=== PATIENT | male | born 1980 | race Caucasian/White ===

== ENCOUNTER 2022-02-15 10:10 | Observation (INO) ==
[2022-02-15] MEDS ORDERED: KETOROLAC 30 MG/ML VIAL IV ONE ×2 (11:17→14:49)
--- NOTE | 2022-02-15 11:25 | Emergency Department Note ---
Impression & Plan Cellulitis of left lower extremity, Pain and swelling of left knee ED Provider Note CHIEF COMPLAINT: Left lower extremity redness and swelling HISTORY OF PRESENT ILLNESS: Izaiah Barger is a 41 year old male with no significant past medical history who presents to the Emergency Department for evaluation of increased pain, redness and swelling to his left knee radiating down his anterior cardozo which has been progressing over the past 5 days. Initially, the patient noticed a small bump on his anterior distal knee which was mildly painful. He had been attempting to ice the area and took ibuprofen without improvement of his symptoms. Since then, the redness and swelling had continued to expand, but today it "blew up" and has since extended down his anterior cardozo. This has also become much more painful which worsens with attempts of weight bearing activity and flexion/extension of his knee. Additionally, upon waking up this morning the patient states that he felt generally unwell and had perceived fevers/chills. He also felt nauseous but denies specific abdominal pain or vomiting. Currently, he rates his discomfort as a 4/10. He has not attempted to take any medications for his symptoms today. 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 No known history of Lyme disease. No history of gout. He denies other joint pains or rashes. REVIEW OF SYSTEMS: 10 systems were reviewed and were negative unless otherwise stated in HPI as above PHYSICAL EXAM: VITALS: Vitals are noted on the nurse's note and reviewed by myself. Vital signs stable. General: Resting in bed, no acute distress HEENT: Normocephalic, PERRL, EOMI, mucous membranes moist, oropharynx clear Resp: Good inspiratory effort on room air, lung sounds clear bilaterally CV: Regular rate and rhythm, normal S1-S2, peripheral pulses palpated Abd: Soft, non-tender MSK/Integumentary: With attention to the LLE, there is a very small, punctate abrasion on the distal anterior knee but no other open wounds. Erythema and edema over the left anterior knee extending down over the majority of the anterior cardozo, warm and tender to palpation. No fluctuance to palpation of the knee. ROM of the left knee very limited secondary to pain. No tenderness to palpation of the left hip, thigh, ankle or foot. Sensation and d/p pulse intact. No other appreciable wounds or skin changes, moving all other extremities without apparent pain or difficulty Neuro: Awake, alert and oriented x 3, interacting and answering questions shani ropriately Differential diagnosis includes cellulitis, septic joint, tick borne illness, Lyme disease, gout, DVT, among others were considered. EMERGENCY DEPARTMENT COURSE: Physical exam and history were performed. Nursing triage notes, EMR, and medication list were personally reviewed. Patient appears to have increased pain, redness and swelling to his left knee radiating down his anterior cardozo which is been progressing over the past 5 days. Additional history as described above. See physical exam as noted above. The patient was offered medication. IV access was established and he was given Toradol 30 mg x 2 throughout his emergency department course. Labs were obtained and reviewed by myself as below. Of note, he was noted to have leukocytosis with a WBC of 14.79. No concern for anemia with hemoglobin 14.1. Electrolytes WNL. Renal indices stable. LFTs WNL. ESR was elevated at 46 and CRP elevated at 13.11. Procalcitonin not elevated at 0.16. Lyme IgG/IgM negative. Blood cultures were obtained and are pending. On initial evaluation, there were concerns for cellulitic infection. After blood cultures were obtained, he was given Ancef 2 g. Although there was no fluctuance on examination, x-ray of the left knee was obtained and reviewed by radiologist myself as below. There was moderate soft tissue swelling with a small joint effusion seen. Given the above findings and the patient's significant pain with range of motion of the left knee, there were concerns for possible septic joint. He did agree for arthrocentesis at bedside as follows: Left knee arthrocentesis: A towel was placed under the left knee to achieve ~15 degrees of flexion. The area was cleansed with betadine. A wheal of 1% buffered lidocaine was injected into the skin to achieve local anesthesia. An 18 g needle was injected into the lateral aspect of the knee under the patella into the joint space with aspiration of 1 mL of yellow/straw colored translucent synovial fluid with a small amount of blood. Unfortunately, this was only enough fluid for a culture, which was sent, however not enough for a cell count. A second attempt was performed (in the same fashion as previously noted) without additional aspiration of fluid. A bandage was placed over the injection sites. Following the initial arthrocentesis attempt, the patient had gotten up to use the bathroom and suffered a vaso vagal event. He passed out very briefly but immediately came to. He did not injure himself during the episode and was helped back into bed. Initially, he was noted to be hypotensive and bradycardic, but this quickly improved after he laid in bed to rest and was given NSS 1 L. No additional events noted on the ingot stripper. Upon reevaluation, the patient was doing well. I discussed the results of the above findings with him and his at bedside. Given the workup as above, I am concerned for cellulitic infection vs. septic joint. I do feel that he will benefit from continued treatment in the hospital for IV antibiotics. Ancef and Vancomycin ordered, however he did vomit immediately after starting the Ancef so this was stopped. Vancomycin continued. I did contact Dr. Argueta of [facility], they are aware of the patient's case. I also contacted Dr. Liriano of the [facility]. He agreed to evaluate the patient. Please see his documentation for additional plan and disposition thereafter. The patient and his agreed with the treatment plan as above. The chart was completed utilizing [email or web address] Speech Voice Recognition Software. Grammatical errors, random word insertions, pronoun errors, and incomplete sentences are an occasional consequence of this system due to software limitations, ambient noise, and hardware issues. Any formal questions or concerns about the content, text, or information contained within the body of this dictation should be directly addressed to the provider for clarification. Past Med/Surg History Medical History No pertinent past medical history Surgical History No pertinent past surgical history Family History Father Endocarditis Social History Smoking Status: Never smoker Feels Safe at Home: Yes Allergies Allergies Allergy/AdvReac Type Severity Reaction Status Date / Time No Known Allergies Allergy Verified 02/15/22 15:03 Home Meds Home Medications Medication Instructions Recorded Confirmed acetaminophen 500 mg tablet 1,000 mg PO DIRECTED PRN Pain 02/15/22 02/15/22 (Tylenol Extra Strength) ibuprofen 200 mg tablet 800 mg PO DIRECTED PRN Pain 02/15/22 02/15/22 Results & Data (ED) Vital Signs Vital Signs - 24 hr 02/15/22 11:00 02/15/22 13:33 02/15/22 14:45 Temperature 37.1 C Temperature Source Temporal Artery Scan Pulse Rate 91 H Pulse Rate [Right Radial] 50 L 78 Pulse Rate from SpO2 Sensor Pulse Rhythm [Right Radial] Regular Regular Pulse Strength [Right Radial] Normal Respiratory Rate 18 16 20 Respiratory Effort / Characteristics Non-Labored Non-Labored Respiratory Depth Normal Normal Blood Pressure 130/78 Blood Pressure [Right Arm] 88/37 L 126/70 Blood Pressure Mean 95 Blood Pressure Mean [Right Arm] 54 88 Blood Pressure Position [Right Arm] Right Lateral Lying Pulse Oximetry 97 98 100 Oxygen Delivery Method Room Air Room Air Room Air Sepsis Recent Fever Within 48 Hours No Sepsis New/Unexplained Change in Mental Status N/A Sepsis Action Taken by Nursing No Action Required 02/15/22 15:00 02/15/22 15:00 Temperature Temperature Source Pulse Rate 82 Pulse Rate [Right Radial] Pulse Rate from SpO2 Sensor 82 Pulse Rhythm [Right Radial] Pulse Strength [Right Radial] Respiratory Rate 27 H Respiratory Effort / Characteristics Respiratory Depth Blood Pressure 135/84 Blood Pressure [Right Arm] Blood Pressure Mean 101 Blood Pressure Mean [Right Arm] Blood Pressure Position [Right Arm] Pulse Oximetry 99 Oxygen Delivery Method Sepsis Recent Fever Within 48 Hours Sepsis New/Unexplained Change in Mental Status Sepsis Action Taken by Nursing Laboratory Data Result diagrams: 02/15/22 11:27 02/15/22 11:27 Lab Results 02/15/22 02/15/22 02/15/22 Range/Units 11:27 11:27 11:27 WBC 14.79 H (4.8-10.8) K/ul RBC 4.69 (4.63-6.08) M/uL Hgb 14.1 (14.0-18.0) g/dl Hct 40.8 (40.1-51.0) % MCV 87.0 (80.0-100.0) fL MCH 30.1 (25.0-34.0) pg MCHC 34.6 (32.0-36.0) g/dL RDW Std Deviation 39.2 (36.4-46.3) fL RDW Coeff of Ailyn 12.4 (11.5-14.5) % Plt Count 239 (130-400) K/uL MPV 9.1 L (9.4-12.4) fL Immature Gran % (Auto) 0.3 % Neut % (Auto) 82.3 % Lymph % (Auto) 8.7 % [place] % (Auto) 8.1 % Eos % (Auto) 0.1 % Baso % (Auto) 0.5 % Neut # (Auto) 12.16 H (1.4-6.5) K/uL Lymph # (Auto) 1.29 (1.2-3.4) K/uL [place] # (Auto) 1.20 H (0.24-0.82) K/uL Eos # (Auto) 0.02 (0-0.50) K/uL Baso # (Auto) 0.07 (0-0.2) K/uL Immature Gran # (Auto) 0.05 H (0.00-0.02) K/uL ESR 46 H (0-15) mm/hr Sodium (136-145) mmol/L Potassium (3.5-5.1) mmol/L Chloride (98-107) mmol/L Carbon Dioxide (21-32) mmol/L Anion Gap (3-11) BUN (6-23) mg/dl Creatinine (0.6-1.4) mg/dl Est Cr Clr Drug Dosing ml/min Est GFR ( Amer) ml/min Est GFR (Non-Af Amer) ml/min BUN/Creatinine Ratio (10-20) Glucose (70-99(Fasting)) mg/dl Uric Acid (2.6-7.2) mg/dl Calcium (8.5-10.1) mg/dl Total Bilirubin (0.2-1.0) mg/dl AST (13-39) U/L ALT (7-52) U/L Alkaline Phosphatase (34-104) U/L C-Reactive Protein (0-0.5) mg/dl Total Protein (6.0-8.3) gm/dl Albumin (3.4-5.0) gm/dl Globulin (2.5-4.0) gm/dl Albumin/Globulin Ratio (0.9-2) Procalcitonin 0.16 (0-0.5) ng/ml Fluid Comment Synovial Source Synovial Color Synovial Appearance Synovial WBC Synovial RBC Synov Polynuclear WBCs Synov Mononuclear WBCs Synovial Other Cells Synovial Polynuclear % Synovial Mononuclear % Lyme Disease IgG Ab Negative (Negative) Lyme Disease IgM Ab Negative (Negative) SARS-CoV-2, RNA, NAAT (NEGATIVE) 02/15/22 02/15/22 02/15/22 Range/Units 11:27 11:27 13:20 WBC (4.8-10.8) K/ul RBC (4.63-6.08) M/uL Hgb (14.0-18.0) g/dl Hct (40.1-51.0) % MCV (80.0-100.0) fL MCH (25.0-34.0) pg MCHC (32.0-36.0) g/dL RDW Std Deviation (36.4-46.3) fL RDW Coeff of Ailyn (11.5-14.5) % Plt Count (130-400) K/uL MPV (9.4-12.4) fL Immature Gran % (Auto) % Neut % (Auto) % Lymph % (Auto) % [place] % (Auto) % Eos % (Auto) % Baso % (Auto) % Neut # (Auto) (1.4-6.5) K/uL Lymph # (Auto) (1.2-3.4) K/uL [place] # (Auto) (0.24-0.82) K/uL Eos # (Auto) (0-0.50) K/uL Baso # (Auto) (0-0.2) K/uL Immature Gran # (Auto) (0.00-0.02) K/uL ESR (0-15) mm/hr Sodium 135 L (136-145) mmol/L Potassium 4.2 (3.5-5.1) mmol/L Chloride 105 (98-107) mmol/L Carbon Dioxide 24 (21-32) mmol/L Anion Gap 6 (3-11) BUN 12 (6-23) mg/dl Creatinine 0.92 (0.6-1.4) mg/dl Est Cr Clr Drug Dosing 123.9 ml/min Est GFR ( Amer) 117.6 ml/min Est GFR (Non-Af Amer) 101.5 ml/min BUN/Creatinine Ratio 13.0 (10-20) Glucose 87 (70-99(Fasting)) mg/dl Uric Acid 6.2 (2.6-7.2) mg/dl Calcium 9.3 (8.5-10.1) mg/dl Total Bilirubin 0.8 (0.2-1.0) mg/dl AST 18 (13-39) U/L ALT 19 (7-52) U/L Alkaline Phosphatase 98 (34-104) U/L C-Reactive Protein 13.11 H (0-0.5) mg/dl Total Protein 7.4 (6.0-8.3) gm/dl Albumin 4.3 (3.4-5.0) gm/dl Globulin 3.1 (2.5-4.0) gm/dl Albumin/Globulin Ratio 1.4 (0.9-2) Procalcitonin (0-0.5) ng/ml Fluid Comment Cancelled Synovial Source Cancelled Synovial Color Cancelled Synovial Appearance Cancelled Synovial WBC Cancelled Synovial RBC Cancelled Synov Polynuclear WBCs Cancelled Synov Mononuclear WBCs Cancelled Synovial Other Cells Cancelled Synovial Polynuclear % Cancelled Synovial Mononuclear % Cancelled Lyme Disease IgG Ab (Negative) Lyme Disease IgM Ab (Negative) SARS-CoV-2, RNA, NAAT (NEGATIVE) 02/15/22 Range/Units 15:09 WBC (4.8-10.8) K/ul RBC (4.63-6.08) M/uL Hgb (14.0-18.0) g/dl Hct (40.1-51.0) % MCV (80.0-100.0) fL MCH (25.0-34.0) pg MCHC (32.0-36.0) g/dL RDW Std Deviation (36.4-46.3) fL RDW Coeff of Ailyn (11.5-14.5) % Plt Count (130-400) K/uL MPV (9.4-12.4) fL Immature Gran % (Auto) % Neut % (Auto) % Lymph % (Auto) % [place] % (Auto) % Eos % (Auto) % Baso % (Auto) % Neut # (Auto) (1.4-6.5) K/uL Lymph # (Auto) (1.2-3.4) K/uL [place] # (Auto) (0.24-0.82) K/uL Eos # (Auto) (0-0.50) K/uL Baso # (Auto) (0-0.2) K/uL Immature Gran # (Auto) (0.00-0.02) K/uL ESR (0-15) mm/hr Sodium (136-145) mmol/L Potassium (3.5-5.1) mmol/L Chloride (98-107) mmol/L Carbon Dioxide (21-32) mmol/L Anion Gap (3-11) BUN (6-23) mg/dl Creatinine (0.6-1.4) mg/dl Est Cr Clr Drug Dosing ml/min Est GFR ( Amer) ml/min Est GFR (Non-Af Amer) ml/min BUN/Creatinine Ratio (10-20) Glucose (70-99(Fasting)) mg/dl Uric Acid (2.6-7.2) mg/dl Calcium (8.5-10.1) mg/dl Total Bilirubin (0.2-1.0) mg/dl AST (13-39) U/L ALT (7-52) U/L Alkaline Phosphatase (34-104) U/L C-Reactive Protein (0-0.5) mg/dl Total Protein (6.0-8.3) gm/dl Albumin (3.4-5.0) gm/dl Globulin (2.5-4.0) gm/dl Albumin/Globulin Ratio (0.9-2) Procalcitonin (0-0.5) ng/ml Fluid Comment Synovial Source Synovial Color Synovial Appearance Synovial WBC Synovial RBC Synov Polynuclear WBCs Synov Mononuclear WBCs Synovial Other Cells Synovial Polynuclear % Synovial Mononuclear % Lyme Disease IgG Ab (Negative) Lyme Disease IgM Ab (Negative) SARS-CoV-2, RNA, NAAT NEGATIVE (NEGATIVE) Administered Medications Vancomycin HCl 2,750 mg/ (Sodium Chloride) 555 mls @ 200 mls/hr IV NOW ONE Stop: 02/15/22 17:35 Last Admin: 02/15/22 17:13 Dose: 200 mls/hr Documented By: NMS Discontinued Medications Cefazolin Sodium (Ancef 2000mg) 2,000 mg in 15 mls @ 3.75 mls/min IV NOW STA Stop: 02/15/22 12:36 Last Admin: 02/15/22 12:38 Dose: 3.75 mls/min Documented By: ANU Sodium Chloride (Nss 1000ml) 1,000 mls @ 999 mls/hr IV .Q1H1M ESTEPHANIA Stop: 02/15/22 14:31 Last Infusion: 02/15/22 14:44 Dose: 0 mls/hr Documented By: Admin: 02/15/22 13:34 Dose: 999 mls/hr Documented By: ANU Ceftriaxone Sodium (Rocephin) 2,000 mg in 70 mls @ 140 mls/hr IV NOW STA Stop: 02/15/22 15:18 Last Infusion: 02/15/22 15:29 Dose: 0 mls/hr Documented By: Infusion: 02/15/22 15:28 Dose: 0 mls/hr Documented By: Admin: 02/15/22 15:00 Dose: 140 mls/hr Documented By: ANU Ketorolac Tromethamine (Ketorolac 30 Mg/Ml Vial) 30 mg IV NOW ONE Stop: 02/15/22 11:18 Last Admin: 02/15/22 11:21 Dose: 30 mg Documented By: ANU Ketorolac Tromethamine (Ketorolac 30 Mg/Ml Vial) 30 mg IV NOW ONE Stop: 02/15/22 14:50 Last Admin: 02/15/22 15:00 Dose: 30 mg Documented By: ANU Lidocaine HCl (Xylocaine 1%/Sod Bicarb 20 Ml Vial) 20 ml INFIL NOW ONE Stop: 02/15/22 13:07 Last Admin: 02/15/22 13:34 Dose: 20 ml Documented By: ANU Lidocaine HCl (Lidocaine 1% Local 20 Ml Vial) Confirm Administered Dose 20 ml .ROUTE .STK-MED ONE Stop: 02/15/22 13:07 Last Admin: 02/15/22 13:10 Dose: Not Given Documented By: ANU Imaging Data Radiologist's Impression: Knee X-Ray 02/15/22 11:14 XR knee LT 3V HISTORY: 41 years-old Male redness/swelling acute pain and swelling of the left knee COMPARISON: None TECHNIQUE: 3 views of the left knee FINDINGS: Moderate circumferential soft tissue prominence with small joint effusion. No ac [place] fracture, dislocation, osseous erosion or osteochondral defect. The joint spaces are preserved. Acute ossifications superficial to the tibial tuberosity measure up to 1.5 cm. IMPRESSION: 1. Moderate soft tissue swelling with small joint effusion. 2. No acute fracture. 3. Corticated ossifications adjacent to the tibial tuberosity are suggestive of prior [place]-Schlatter disease or chronic avulsion fracture. ACT 112: Negative or not required by law. The above report was generated using voice recognition software. It may contain grammatical, syntax or spelling errors. Electronically signed by: Chuy Sigala M.D. 02/15/2022 12:42 PM Discharge Plan Visit Data Chief Complaint: Knee Injury/Pain Stated Complaint: L KNEE PAIN AND SWELLING ED Provider: Angel Meyer ED Midlevel Provider: Bethany Egan Discharge Problem: Cellulitis of left lower extremity, Pain and swelling of left knee Patient Disposition: Admitted As Inpatient Discharge Instructions Interventions: ED Discharge Assessment Last Done: 02/15/22 16:41
[2022-02-15 11:35] LABS: Basophils # (auto) 0.07 K/uL (0-0.2); Basophils % (auto) 0.5 %; Eosinophils # (auto) 0.02 K/uL (0-0.50); Eosinophils % (auto) 0.1 %; Hematocrit (blood only) 40.8 % (40.1-51.0); Hemoglobin 14.1 g/dl (14.0-18.0); Immature Granulocytes # (auto) 0.05 K/uL (0.00-0.02); Immature Granulocytes % (auto) 0.3 %; Lymphocytes # (auto) 1.29 K/uL (1.2-3.4); Lymphocytes % (auto) 8.7 %; Mean Corpuscular Hemoglobin 30.1 pg (25.0-34.0); Mean Corpuscular Hgb Conc 34.6 g/dL (32.0-36.0); Mean Platelet Volume 9.1 fL (9.4-12.4); Monocytes % (auto) 8.1 %; Neutrophils # (auto) 12.16 K/uL (1.4-6.5); Neutrophils % (auto) 82.3 %; Platelet Count 239 K/uL (130-400); RDW Coefficient of Variation 12.4 % (11.5-14.5); RDW Standard Deviation 39.2 fL (36.4-46.3); Red Blood Count 4.69 M/uL (4.63-6.08); White Blood Count 14.79 K/ul (4.8-10.8)
[2022-02-15 11:57] LABS: Albumin Globulin Ratio 1.4 (0.9-2); Albumin Level 4.3 gm/dl (3.4-5.0); Bilirubin,Total 0.8 mg/dl (0.2-1.0); C Reactive Protein 13.11 mg/dl (0-0.5); Calcium 9.3 mg/dl (8.5-10.1); Creatinine Clr Calc Pharmacy 123.9 ml/min; Est GFR (African American) 117.6 ml/min; Est GFR (Non-African American) 101.5 ml/min; Globulin 3.1 gm/dl (2.5-4.0); Potassium 4.2 mmol/L (3.5-5.1); Total Protein 7.4 gm/dl (6.0-8.3)
[2022-02-15 12:21] LABS: Procalcitonin 0.16 ng/ml (0-0.5)
[2022-02-15 12:27] LABS: Lyme Ab IgG w/WB Rflx Negative (Negative); Lyme Ab IgM w/WB Rflx Negative (Negative)
[2022-02-15] MEDS ORDERED: ceFAZolin 2000MG 2,000 MG/15 ML SYR IV STA (12:33)
--- NOTE | 2022-02-15 12:43 | XRay Report ---
XR knee LT 3V HISTORY: 41 years-old Male redness/swelling acute pain and swelling of the left knee COMPARISON: None TECHNIQUE: 3 views of the left knee FINDINGS: Moderate circumferential soft tissue prominence with small joint effusion. No acute fracture, disloca tion, osseous erosion or osteochondral defect. The joint spaces are preserved. Acute ossifications tello perficial to the tibial tuberosity measure up to 1.5 cm. IMPRESSION: 1. Moderate soft tissue swelling with small joint effusion. 2. No acute fracture. 3. Corticated ossifications adjacent to the tibial tuberosity are suggestive of prior [place]-Schlatte r disease or chronic avulsion fracture. ACT 112: Negative or not required by law. The above report was generated using voice recognition software. It may contain grammatical, syntax o r spelling errors. Electronically signed by: Chuy Sigala M.D. 02/15/2022 12:42 PM
[2022-02-15] MEDS ORDERED: LIDOCAINE 1% LOCAL 20 ML VIAL ONE (13:06)
[2022-02-15] MEDS ORDERED: XYLOCAINE 1%/SOD BICARB 20 ML VIAL INFIL ONE (13:06)
[2022-02-15] MEDS ORDERED: SODIUM CHLORIDE 0.9% 1000ML 1,000 ML IV SCH (13:31)
[2022-02-15] MEDS ORDERED: VANCOMYCIN HCL 2,750 MG in SODIUM CHLORIDE 0.9% 500 ML IV ONE (14:49)
[2022-02-15] MEDS ORDERED: VANCOMYCIN CONSULT ACTIVE PRN (14:49)
[2022-02-15] MEDS ORDERED: cefTRIAXone SODIUM 2,000 MG/70 ML BAG IV STA (14:49)
--- NOTE | 2022-02-15 15:33 | History & Physical Report ---
Date of Service February 15, 2022 Assessment & Plan (1) Cellulitis: Plan: Likely cellulitis, but ED provider had some concern for septic joint and aspirated the left knee. Per report, fluid was straw-colored and clear. Only a few mL were able to be aspirated, so only culture was sent. I did POC u/s on left knee and did not see any fluid that I could drain in the prepatellar bursa. - Continue vancomycin from ER - Orthopedics consulted for concern for septic joint. Will assess later today, but likely no need for surgery. - Follow blood and synovial joint cultures (2) DVT prophylaxis: Plan: SCDs - Low DVT risk per admission calculator History of Present Illness Primary Care Provider: Homero Resendez MD 41yo M w/ no major PMH who presents with left knee cellulitis and less likely a left knee septic bursitis vs. joint. The patient reports that on Friday, he noticed a small bump and swelling over his left patella. He iced it, and it seemed to get better over Friday and Friday; however, on it became much larger and more painful and red. Over night on , he had fevers/c hills/sweats. This morning he had some nausea and the redness had spread down his cardozo, so he decided to come to the ER. Allergies Allergy/AdvReac Type Severity Reaction Status Date / Time No Known Allergies Allergy Verified 02/15/22 15:03 Home Medications Medication Instructions Recorded Confirmed Type acetaminophen 500 mg tablet 1,000 mg PO DIRECTED PRN Pain 02/15/22 02/15/22 History (Tylenol Extra Strength) ibuprofen 200 mg tablet 800 mg PO DIRECTED PRN Pain 02/15/22 02/15/22 History Past Med/Surg History Medical History No pertinent past medical history Surgical History No pertinent past surgical history Family History Father Endocarditis Social History Smoking Status: Never smoker Feels Safe at Home: Yes Review of Systems Review of Systems: All systems reviewed & are unremarkable except as noted in HPI & below Physical Exam Constitutional: WD/WN, vitals as above Eyes: EOM intact bilaterally; no conjunctival abnormality ENMT: external ear and nose normal, oropharynx normal Neck: trachea midline, no thyromegaly normal visual inspection Respiratory: normal respiratory effort, lungs clear to auscultation no respiratory distress Cardiovascular: RRR, no murmur, no edema Gastrointestinal (Abdomen): Inspection/Auscultation: abdomen normal to inspection; abdomen not distended Musculoskeletal: no cyanosis or clubbing, extremities motor strength 5/5 Skin: no rashes, warm and dry + erythema (Over left knee down cardozo; now outlined. No clear effusion.) Neurologic: moves all extremities and awake Psychiatric: Orientation: alert, oriented to person and cooperative Results & Data Results & Data ([facility]) Vital Signs (Past 12 Hours) Vital Signs Temp Pulse Pulse Resp BP BP Pulse Ox 02/15/22 14:45 78 20 126/70 100 02/15/22 13:33 50 L 16 88/37 L 98 02/15/22 11:00 37.1 C 91 H 18 130/78 97 O2 Del Method 02/15/22 14:45 Room Air 02/15/22 13:33 Room Air 02/15/22 11:00 Room Air Code Status & VTE Plan VTE Prophylaxis Plan VTE Prophylaxis will be ordered: Yes PG Care Time/CCT Total # of Minutes Spent Total Time Spent with Patient: Total time spent is greater than 50% in coordination of care (as documented) at patient's floor/unit and/or counseling patient: Coding Level of Care Code INT OBSERVATION CARE 70M LVL 3 Diagnoses Cellulitis L03.90 DVT prophylaxis Z29.9
[2022-02-15] MEDS ORDERED: ACETAMINOPHEN 325 MG TAB PO PRN (16:39)
[2022-02-15] MEDS ORDERED: ONDANSETRON INJ 2 MG/ML 2 ML VIAL IV PRN (16:39)
[2022-02-15] MEDS ORDERED: MoRPHine SULFATE 4 MG/ML 1 ML CARP\\VIAL IV PRN (16:39)
--- NOTE | 2022-02-15 16:57 | Emergency Department Note ---
ED Visit Note Physician Evaluation Note: Patient was seen in conjunction with the physician senior administrative assistant. Please see the physician senior administrative assistant note for full details of the visit. I have personally evaluated and examined this patient. I performed a substantive portion of the patient visit including medical decision making and interpretation of diagnostic studies. On my examination the patient is in no acute distress, does complain of some pain in the left lower extremity superficially above his knee and anteriorly in the area of the left cardozo where he does have some erythematous changes consistent with a cellulitis. The left knee is not grossly swollen but he does have some swelling and erythema to the anterior portion of the joint above the patella. Lab work shows a leukocytosis, aspiration was attempted of the left knee at the bedside by the physician senior administrative assistant with only enough synovial fluid obtained for culture. Gram stain was resulting positive for white blood cells but no organisms seen. Over concern for expanding cellulitis in addition to possibility of septic arthritis patient will be admitted to the hospitalist service with orthopedic consultation for IV antibiotics and follow-up on cultures. Patient was in agreement to this plan he was admitted in stable condition, administered broad-spectrum antibiotics prior to admission. I agree with assessment and plan of DANYA Noguera DO .
[2022-02-15] MEDS: HYDROCODONE/ACETAMOPHEN 5/325MG TAB PO PRN (20:55)
[2022-02-15] MEDS ORDERED: diphenhydrAMINE Capsule 25 MG CAP PO ONE (22:53)
--- NOTE | 2022-02-15 22:58 | Communication Note ---
Date of Service: February 15, 2022 Notified by nursing that patient developed flushing and itching after receiving his first dose of vancomycin. No rash or erythema noted. Discussed with pharmacy. Mild vancomycin flushing syndrome. Will switch to dapto to avoid possibility of worse reaction with subsequent doses of vanc. Dose of dapto will start when the next dose of vanc would be due. Providing 1 dose of PO benadryl.
[2022-02-16] MEDS: DAPTOmycin 500 MG in SYRINGE 0 ML IV SCH (03:43)
[2022-02-16] MEDS: HYDROCODONE/ACETAMOPHEN 5/325MG TAB PO PRN ×4 (03:48→21:03)
[2022-02-16 06:19] LABS: Hematocrit (blood only) 37.9 % (40.1-51.0); Hemoglobin 13.3 g/dl (14.0-18.0); Mean Corpuscular Hemoglobin 30.4 pg (25.0-34.0); Mean Corpuscular Hgb Conc 35.1 g/dL (32.0-36.0); Mean Corpuscular Volume 86.7 fL (80.0-100.0); Mean Platelet Volume 9.3 fL (9.4-12.4); Platelet Count 239 K/uL (130-400); RDW Coefficient of Variation 12.6 % (11.5-14.5); RDW Standard Deviation 40.5 fL (36.4-46.3); Red Blood Count 4.37 M/uL (4.63-6.08); White Blood Count 12.75 K/ul (4.8-10.8)
[2022-02-16 06:41] LABS: Calcium 8.3 mg/dl (8.5-10.1); Creatinine Clr Calc Pharmacy 123.5 ml/min; Est GFR (African American) 117.6 ml/min; Est GFR (Non-African American) 101.5 ml/min
--- NOTE | 2022-02-16 08:02 | Orthopedic Consultation ---
Date of Consultation February 16, 2022 Assessment & Plan (1) Cellulitis of left lower extremity: Discussed the aspiration results thus far with the patient. On gram stain, no organisms were seen inside the joint. Still awaiting culture results. Continue IV daptomycin per medicine. We will continue to follow the improvement of the lower leg erythema. Ultrasound of the anterior aspect of the left knee did not show any fluid collections at this time. Thank you for the consultation and we will continue to monitor the patient with the hospitalist. History of Present Illness Reason for Consultation: Left knee/lower leg pain Attending Physician: Helen Sykes MD History of Present Illness This is a patient who presented to the emergency room for redness and warmth of the left lower leg with significant pain and difficulty with ambulating. The left knee was aspirated because of concern of a septic left knee. The aspiration was sent for gram stain and cultures. He was placed on vancomycin but had a mild flushing reaction with the vancomycin so that medication was discontinued. He was then placed on daptomycin. He states that the redness has improved. He is still having a fair amount of pain in the leg but generally feeling better. Allergies Allergy/AdvReac Type Severity Reaction Status Date / Time vancomycin AdvReac Mild Flushing Verified 02/15/22 22:56 and Itching Home Medications Medication Instructions Recorded Confirmed Type acetaminophen 500 mg tablet 1,000 mg PO DIRECTED PRN Pain 02/15/22 02/15/22 History (Tylenol Extra Strength) ibuprofen 200 mg tablet 800 mg PO DIRECTED PRN Pain 02/15/22 02/15/22 History Patient History Medical History No pertinent past medical history Surgical History No pertinent past surgical history Family History Father Endocarditis Social History Smoking Status: Never smoker Hx Alcohol Use: Yes Alcohol type: beer and hard liquor Hx Substance Use: No Preferred Language: Filipino [employer] Guide Required: No Beliefs That Will Affect Care: None Current Living Situation: Spouse and Family Feels Safe at Home: Yes Assistive Devices: None Physical Exam Constitutional: WD/WN, vitals as above no acute distress Neck: trachea midline Musculoskeletal: Knee: + skin erythema (Moderate erythema from the inferior aspect of the knee to the lower leg); no ecchymosis and no joint line tenderness Skin: Trauma: no evidence of skin trauma Neurologic: normal touch/pain/proprioception Psychiatric: A+Ox3, euthymic affect Speech: normal rate/rhythm/volume of speech Results & Data ([facility]) Vital Signs (Past 12 Hours) Vital Signs Temp Pulse Resp BP Pulse Ox O2 Del Method 02/16/22 07:22 36.9 C 79 12 94/54 L 97 Room Air 02/15/22 22:22 37.6 C H 87 18 124/65 95 Room Air Laboratory Results Laboratory Tests 02/16/22 05:29 WBC 12.75 H Hgb 13.3 L Hct 37.9 L
--- NOTE | 2022-02-16 09:21 | Communication Note ---
Date of Service: February 16, 2022 I saw Izaiah today. He states redness has slightly decreased. Examination shows prepatellar fluid accumulation consistent with prepatellar bursitis as well as associated cellulitis. We will observe for 24 hours on antibiotic. If he is not significantly improved, he may benefit from I&D of prepatellar bursa. We will make him n.p.o. after midnight tomorrow and reevaluate in the morning
--- NOTE | 2022-02-16 15:31 | Hospitalist Progress Note ---
Date of Service February 16, 2022 Assessment & Plan (1) Prepatellar bursitis: Plan: Presents with fever, tachycardia, hypotension, leukocytosis and left knee prepatellar bursitis with cellulitis down left leg Somewhat improved on IV abx. Initially on Vanco but had Red Man reaction, now on Daptomycin BPs and vitals now improved Knee xray with small effusion, soft tissue swelling,and calcifications c/w Ulises-Schlatter Lyme titer negative ESR and CRP quite elevated PCT negative WBC count trending downward now but not normal yet BCx-NGTD Aspirate of fluid from bursa with Gram stain many polys, no organisms, cx pending -continue IV Dapto -Appreciate Ortho consult-NPO after midnight in case of need for I&D tomorrow -tylenol prn pain or fever -hydrocodone and IV morphine prn pain -follow clinically -follow cultures (2) Cellulitis: Plan: as above (3) Sepsis: Plan: as above, now resolved (4) DVT prophylaxis: Plan: SCDs - Low DVT risk per admission calculator Dispo-continued stay Admission and Anticipated Discharge Date Admission Date: February 15, 2022 Subjective Pt feels redness is less but has spread further down his leg. No more fevers/chills and feels overall better. Denies headache, lightheadedness, CP, SOB, nausea. Review of Systems Review of Systems: All systems reviewed & are unremarkable except as noted in HPI & below Physical Exam Constitutional: WD/WN, vitals as above Eyes: + anicteric sclerae Neck: trachea midline, no thyromegaly Respiratory: normal respiratory effort, lungs clear to auscultation Cardiovascular: RRR, no murmur, no edema Musculoskeletal: Extremities: + limited ROM of extremities (left knee 0-20 degrees flexion); + extremities abnormal to inspection (left knee with +TTP over prepatellar bursa,edema,erythema), no cyanosis and no clubbing Skin: + erythema (left knee and entire left leg erythematous to ankle) Neurologic: moves all extremities and awake; no focal motor deficits Psychiatric: A+Ox3, euthymic affect Results & Data Results & Data ([facility]) Vital Signs (Past 12 Hours) Vital Signs Temp Pulse Resp BP Pulse Ox O2 Del Method 02/16/22 10:38 67 121/74 02/16/22 07:22 36.9 C 79 12 94/54 L 97 Room Air Laboratory Results 02/16/22 02/16/22 02/15/22 Range/Units 05:29 05:29 15:09 WBC 12.75 H (4.8-10.8) K/ul RBC 4.37 L (4.63-6.08) M/uL Hgb 13.3 L (14.0-18.0) g/dl Hct 37.9 L (40.1-51.0) % MCV 86.7 (80.0-100.0) fL MCH 30.4 (25.0-34.0) pg MCHC 35.1 (32.0-36.0) g/dL RDW Std Deviation 40.5 (36.4-46.3) fL RDW Coeff of Ailyn 12.6 (11.5-14.5) % Plt Count 239 (130-400) K/uL MPV 9.3 L (9.4-12.4) fL Sodium 135 L (136-145) mmol/L Potassium 4.0 (3.5-5.1) mmol/L Chloride 106 (98-107) mmol/L Carbon Dioxide 22 (21-32) mmol/L Anion Gap 7 (3-11) BUN 12 (6-23) mg/dl Creatinine 0.92 (0.6-1.4) mg/dl Est Cr Clr Drug Dosing 123.5 ml/min Est GFR ( Amer) 117.6 ml/min Est GFR (Non-Af Amer) 101.5 ml/min BUN/Creatinine Ratio 13.0 (10-20) Glucose 99 (70-99(Fasting)) mg/dl Uric Acid (2.6-7.2) mg/dl Calcium 8.3 L (8.5-10.1) mg/dl Magnesium 2.0 (1.7-2.4) mg/dl SARS-CoV-2, RNA, NAAT NEGATIVE (NEGATIVE) 02/15/22 Range/Units 11:27 WBC (4.8-10.8) K/ul RBC (4.63-6.08) M/uL Hgb (14.0-18.0) g/dl Hct (40.1-51.0) % MCV (80.0-100.0) fL MCH (25.0-34.0) pg MCHC (32.0-36.0) g/dL RDW Std Deviation (36.4-46.3) fL RDW Coeff of Ailyn (11.5-14.5) % Plt Count (130-400) K/uL MPV (9.4-12.4) fL Sodium (136-145) mmol/L Potassium (3.5-5.1) mmol/L Chloride (98-107) mmol/L Carbon Dioxide (21-32) mmol/L Anion Gap (3-11) BUN (6-23) mg/dl Creatinine (0.6-1.4) mg/dl Est Cr Clr Drug Dosing ml/min Est GFR ( Amer) ml/min Est GFR (Non-Af Amer) ml/min BUN/Creatinine Ratio (10-20) Glucose (70-99(Fasting)) mg/dl Uric Acid 6.2 (2.6-7.2) mg/dl Calcium (8.5-10.1) mg/dl Magnesium (1.7-2.4) mg/dl SARS-CoV-2, RNA, NAAT (NEGATIVE) PG Care Time/CCT Total # of Minutes Spent Total Time Spent with Patient: Total time spent is greater than 50% in coordination of care (as documented) at patient's floor/unit and/or counseling patient: Coding Level of Care Code 80768 Subseq Hosp Care Lvl 2 Diagnoses Prepatellar bursitis M70.40 Cellulitis L03.90 Sepsis A41.9 DVT prophylaxis Z29.9
[2022-02-17] MEDS: HYDROCODONE/ACETAMOPHEN 5/325MG TAB PO PRN ×2 (01:05→10:03)
[2022-02-17] MEDS: DAPTOmycin 500 MG in SYRINGE 0 ML IV SCH (06:04)
--- NOTE | 2022-02-17 08:06 | Orthopedic Progress Note ---
Date of Service February 17, 2022 Assessment & Plan (1) Cellulitis of left lower extremity: Plan: Probable prepatellar bursitis. Plan for aspiration of prepatellar bursa today. The aspirate will be sent for cultures. Recommend set up for outpatient IV antibiotics and patient may be discharged home with IV antibiotics. Follow up with Dr. Argueta's PA-C, Iza Springer in office on Friday02.19.22. Admission and Anticipated Discharge Date Admission Date: February 15, 2022 Subjective Feeling better today. Pain is improved. Redness improved. Most pain directly over the patella now. Physical Exam Constitutional: WD/WN, vitals as above no acute distress Neck: trachea midline Musculoskeletal: Knee: + skin erythema (Much improve lower leg.) and + joint line tenderness (Tender directly over patella.); no ecchymosis Skin: Trauma: no evidence of skin trauma Neurologic: normal touch/pain/proprioception Psychiatric: A+Ox3, euthymic affect Speech: normal rate/rhythm/volume of speech Results & Data ([facility]) Vital Signs (Past 12 Hours) Vital Signs Temp Pulse Resp BP Pulse Ox O2 Del Method 02/17/22 07:16 36.8 C 73 14 122/77 98 Room Air 02/16/22 22:39 37.2 C 70 18 118/65 97 Room Air
[2022-02-17] MEDS ORDERED: LIDOCAINE 1% LOCAL 20 ML VIAL ONE (08:34)
[2022-02-17 08:55] LABS: Basophils # (auto) 0.05 K/uL (0-0.2); Basophils % (auto) 0.5 %; Eosinophils # (auto) 0.07 K/uL (0-0.50); Eosinophils % (auto) 0.7 %; Hemoglobin 13.1 g/dl (14.0-18.0); Immature Granulocytes # (auto) 0.07 K/uL (0.00-0.02); Immature Granulocytes % (auto) 0.7 %; Lymphocytes # (auto) 1.44 K/uL (1.2-3.4); Lymphocytes % (auto) 14.1 %; Mean Corpuscular Hgb Conc 34.5 g/dL (32.0-36.0); Mean Platelet Volume 9.1 fL (9.4-12.4); Monocytes # (auto) 0.89 K/uL (0.24-0.82); Monocytes % (auto) 8.7 %; Neutrophils # (auto) 7.66 K/uL (1.4-6.5); Neutrophils % (auto) 75.3 %; Platelet Count 260 K/uL (130-400); RDW Coefficient of Variation 12.5 % (11.5-14.5); RDW Standard Deviation 39.9 fL (36.4-46.3); Red Blood Count 4.37 M/uL (4.63-6.08); White Blood Count 10.18 K/ul (4.8-10.8)
[2022-02-17 09:26] LABS: Albumin Globulin Ratio 1.3 (0.9-2); Albumin Level 3.8 gm/dl (3.4-5.0); BUN Creatinine Ratio 14.3 (10-20); Bilirubin,Total 0.4 mg/dl (0.2-1.0); C Reactive Protein 13.01 mg/dl (0-0.5); Calcium 8.6 mg/dl (8.5-10.1); Creatinine Clr Calc Pharmacy 135.3 ml/min; Est GFR (African American) 124.3 ml/min; Est GFR (Non-African American) 107.2 ml/min; Potassium 4.3 mmol/L (3.5-5.1); Total Protein 6.8 gm/dl (6.0-8.3)
--- NOTE | 2022-02-17 12:08 | Discharge Summary ---
Date of Service February 17, 2022 Admission HPI Per Admitting Provider 41yo M w/ no major PMH who presents with left knee cellulitis and less likely a left knee septic bursitis vs. joint. The patient reports that on Friday, he noticed a small bump and swelling over his left patella. He iced it, and it seemed to get better over Friday and Friday; however, on it became much larger and more painful and red. Over night on , he had fevers/chills/sweats. This morning he had some nausea and the redness had spread down his cardozo, so he decided to come to the ER. Principal Diagnosis Left prepatellar bursitis and left lower extremity cellulitis, sepsis Discharge Exam Constitutional WD/WN, vitals as above Eyes + anicteric sclerae Neck trachea midline, no thyromegaly Respiratory normal respiratory effort, lungs clear to auscultation Cardiovascular RRR, no murmur, no edema Musculoskeletal Extremities: + limited ROM of extremities (left knee 0-20 degrees flexion); + extremities abnormal to inspection (left knee with +TTP over prepatellar bursa,edema,erythema), no cyanosis and no clubbing Skin + erythema (left knee and entire left leg erythematous to ankle,slightly improved) Neurologic moves all extremities and awake; no focal motor deficits Psychiatric A+Ox3, euthymic affect Discharge Data Allergies Allergy/AdvReac Type Severity Reaction Status Date / Time vancomycin AdvReac Mild Flushing Verified 02/15/22 22:56 and Itching Consultations 02/15/22 15:14 ED Decision to Admit Stat 02/15/22 16:39 Consult Orthopedic Surgery Routine Hospital Course (1) Prepatellar bursitis: Presents with fever, tachycardia, hypotension, leukocytosis and left knee prepatellar bursitis with cellulitis down left leg Modestly improved on IV abx. Initially on Vanco but had Red Man reaction, now on Daptomycin BPs and vitals now improved, leukocytosis resolved , no further fevers since admission Knee xray with small effusion, soft tissue swelling,and calcifications c/w Ulises-Schlatter Lyme titer negative ESR and CRP quite elevated but CRP trending downward on day of discharge PCT negative BCx-remain NGTD Aspirate of fluid from bursa with Gram stain many polys, no organisms, cx pending but prelim negative Dr. Argueta performed repeat aspiration of joint fluid on 02/17--> not much drained and fluid cx pending Ortho thinks stable for dc with close outpt f/u dc on IV Daptomycin at [facility] US-guided PIV placed prior to discharge -recommend elevation of leg, icing - advised him to remain NPO after midnight on 02/18 for his planned Ortho appt 02/19 in case of need for I&D if not improving further at that time -tylenol, ibuprofen, and hydrocodone prn pain -Ortho to follow cultures at appt in office on Monday 02/19 (2) Cellulitis: as above, improving (3) Sepsis: POA, as above, now resolved (4) DVT prophylaxis: SCDs - Low DVT risk per admission calculator Dispo-dc to home, discussed care with pt and at bedside Total Time Total Time Spent Total Time Spent (In Minutes): 35 min Discharge Plan Discharge Items Patient Disposition: Home - Self-Care Reason For Visit: L KNEE PAIN AND SWELLING Discharge Diagnosis: Left knee prepatellar bursitis and cellulitis of left leg Condition on Discharge: Fair Activity: As commented below Bathing: No limitations Exercise/Sports: Gradually increase as tolerated Exercise Comment: keep left leg elevated as much as possible Driving/Machine Use: No driving if taking hydrocodone Weightbearing: Full weightbearing Non-emergency contact: Primary Care Provider and Surgeon Call non-emergency contact if: you have any medication questions, your symptoms worsen, your pain is not controlled, your pain is worsening, your pain is unusual for you, your pain is concerning for you, you have a fever and your temperature is above 101 Follow-up/Referrals: Homero Resendez MD [Primary Care Provider] - (Follow up within 1 week.) Jayesh Argueta MD [Physician] - (Call for an appointment for hospital follow up with Dr. Argueta's PAIza, on Friday02/19/22.) Diet: Regular Addtl Attending Provider Instructions: Continue the IV antibiotic called Daptomycin once daily at the [facility] for at least one more week. Keep your leg elevated and you can ice it to reduce swelling. If you have worsening redness, swelling, fevers/chills, please call the Orthopedic Surgeon's office right away or come to the ER Follow up at [facility] on Friday02/19/22. If it is not improving, Dr. Argueta may decide to operate to drain the infection. You can take ibuprofen, tylenol for mild-moderate pain, and the hydrocodone/APAP for moderate-severe pain as needed. Take a stool softener or laxative if needed for constipation that hydrocodone can sometimes cause. Best wishes for a speedy recovery! -Helen Sykes M.D. Pending Studies at Discharge: Yes Studies:: Final blood and wound cultures Stand-Alone Forms: [facility] Medications and DC Order Prescriptions: New daptomycin 500 mg recon soln 500 mg IV DAILY Qty: 7 0RF Rx Instructions: administer over 30 mins hydrocodone-acetaminophen 5-325 mg Tablet 1 tab PO Q4H PRN (Reason: moderate-severe pain) Qty: 15 0RF Changed acetaminophen [Tylenol Extra Strength] 500 mg Tablet 1,000 mg PO Q8H PRN (Reason: Pain) Qty: 30 0RF Rx Instructions: OTC ibuprofen 200 mg Tablet 800 mg PO Q8H PRN (Reason: Pain) Qty: 30 0RF Rx Instructions: OTC Discharge Orders: Discharge Order (Routine); Ordered 02/17/22 Ordered By: Helen Sykes Admission Data Admit Date/Time: 02/15/22 15:26 Attending Provider: Helen Sykes Admit Provider: Ronal Liriano Primary Care Provider: Homero Resendez Other Providers: Ronal Liriano ; Jayesh Argueta Coding Level of Care Code 24192 OBS Care - Discharge Diagnoses Prepatellar bursitis M70.40 Cellulitis L03.90 Sepsis A41.9 DVT prophylaxis Z29.9
== END 2022-02-17 14:28 | disposition home or self-care (01) ==
LOC: ED 10:10 → EDINP 10:10 → SUATTDRO 15:26 → 3E 16:41